=== PATIENT | female | born 1945 | race Caucasian/White ===

== ENCOUNTER 2024-05-06 08:55 | Observation (INO) ==
--- NOTE | 2024-04-17 11:42 | PAT Medication Instructions ---
Medication Instructions Date of Service April 17, 2024 Home Medications Medication Instructions Recorded Wheeled Walker #1 ea 12/13/23 clindamycin HCl 300 mg capsule 600 mg (2 x 300 mg) PO ONCE #2 caps 04/10/24 Medication List: ascorbic acid (vitamin C) 1,000 mg tablet (Vitamin C) 1 g PO QAM calcium-mag oxide-vitamin D3 185 mg-50 mg-100 unit capsule (Coral Calcium) 1 cap PO QAM diphenhydramine HCl 25 mg capsule (Allergy Relief (diphenhydramine)) 25 mg PO UD PRN Allergy Symptoms levothyroxine 100 mcg tablet 100 mcg PO QAM multivitamin-ferrous fumarate-folic acid 18 mg-400 mcg tablet (Centrum Women) 1 tab PO QAM clindamycin HCl 300 mg capsule 600 mg (2 x 300 mg) PO ONCE acetaminophen 500 mg tablet (Tylenol Extra Strength) 1,000 mg PO TID PRN pain MEDICATION INSTRUCTIONS: Continue as directed clindamycin HCl 300 mg capsule 600 mg (2 x 300 mg) PO ONCE DO NOT take the morning of surgery ascorbic acid (vitamin C) 1,000 mg tablet (Vitamin C) 1 g PO QAM calcium-mag oxide-vitamin D3 185 mg-50 mg-100 unit capsule (Coral Calcium) 1 cap PO QAM diphenhydramine HCl 25 mg capsule (Allergy Relief (diphenhydramine)) 25 mg PO UD PRN Allergy Symptoms multivitamin-ferrous fumarate-folic acid 18 mg-400 mcg tablet (Centrum Women) 1 tab PO QAM Take morning of surgery With a small sip of water, OTHERWISE NOTHING TO EAT OR DRINK AFTER MIDNIGHT: levothyroxine 100 mcg tablet 100 mcg PO QAM acetaminophen 500 mg tablet (Tylenol Extra Strength) 1,000 mg PO TID PRN pain Take evening before surgery diphenhydramine HCl 25 mg capsule (Allergy Relief (diphenhydramine)) 25 mg PO UD PRN Allergy Symptoms acetaminophen 500 mg tablet (Tylenol Extra Strength) 1,000 mg PO TID PRN pain Other Notes If you have any questions please call us at [phone] or [phone] or [phone] or [phone]
--- NOTE | 2024-04-23 10:44 | Anesthesiology Consultation ---
Date of Service April 23, 2024 Assessment & Plan (1) Encounter for pre-operative examination: - Outpatient joint assessment: Patient is currently scheduled for inpatient pathway. If re-evaluated and patient/surgeon requests outpatient pathway, patient is not advised candidate for outpatient joint program from anesthesia standpoint. Chart Review Chart Review: Acceptable Risk for Surgery and Patient seen in Pre Admission Testing Teaching & Discussion Pre-Anesthesia Teaching/Discussion Notes: Instructed NPO after midnight before surgery, except medications with 15 cc of water. Medication instructions pr ovided according to the PAT guidelines. History Surgery Operation Date: 05/06/24 09:05 Proposed Procedures p Right Total Knee Arthroplasty - Tera Harper MD Height/Weight Height: 5 ft 5 in Weight: 72.8 kg Allergies Allergy/AdvReac Type Severity Reaction Status Date / Time amoxicillin AdvReac Unknown Gastrointestinal Verified 04/16/24 09:39 Upset acetaminophen [From Percocet] AdvReac sleep Verified 04/16/24 09:39 disturbances oxycodone [From Percocet] AdvReac sleep Verified 04/16/24 09:39 disturbances Medications Home Medications Medication Instructions Recorded Confirmed Last Taken ascorbic acid (vitamin C) 1,000 mg 1 g PO QAM 12/02/23 04/16/24 01/01/24 09:00 tablet (Vitamin C) calcium-mag oxide-vitamin D3 185 1 cap PO QAM 12/02/23 04/16/24 01/01/24 09:00 mg-50 mg-100 unit capsule (Coral Calcium) diphenhydramine HCl 25 mg capsule 25 mg PO UD PRN Allergy Symptoms 12/02/23 04/16/24 01/01/24 23:00 (Allergy Relief (diphenhydramine)) levothyroxine 100 mcg tablet 100 mcg PO QAM 12/02/23 04/16/24 01/02/24 07:30 multivitamin-ferrous 1 tab PO QAM 12/02/23 04/16/24 12/26/23 fumarate-folic acid 18 mg-400 mcg tablet (Centrum Women) Wheeled Walker #1 ea 12/13/23 Unknown clindamycin HCl 300 mg capsule 600 mg (2 x 300 mg) PO ONCE #2 caps 04/10/24 04/16/24 Unknown acetaminophen 500 mg tablet 1,000 mg PO TID PRN pain 04/16/24 04/16/24 Unknown (Tylenol Extra Strength) Past Medical History Medical History Hypothyroidism Patient denies h/o stroke, seizures, heart attack, heart failure, DM, HTN, blood clots/DVTs or blood transfusions. Exercise / Class Metabolic Activity III < 4 Walking/Shop/Light housework (denies chest discomfort or shortness of breath with usual activities, ambulates with cane) Past Surgical History Surgical History History of dilatation and curettage ~1974 History of partial hysterectomy w/bladder sling sx. 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/2023 Hx of cholecystectomy ~1974 Hx of left cataract extraction Hx of lumpectomy rt breast, 1989>benign Hx of right cataract extraction Hx of tonsillectomy Hx of tooth extraction fall 2022 x1 tooth, 12/2023 x1 tooth>both surgically removed Past Anesthesia History No Hx of Anesthesia Complications and No Family Hx of Anesthesia Complications History of PONV No Hx of PONV and No Hx of Motion Sickness Social History Smoking Status: Former smoker Do You Dip or Chew Tobacco: No Smoking End Date: age [age] only Hx Alcohol Use: Yes (none for years) Hx Substance Use: No substance use type: does not use Review of Systems Patient denies chest pain, shortness of breath, dyspnea on exertion, snoring, witnessed apneas, reflux, fever, chills, cough, wheezing, or palpitations. Physical Exam Vital Signs Vitals BP 130/73 P 67 TEMP 97.8 SP02 96% on RA RESP 18 Physical Patient resting comfortably in chair in no acute distress, alert and oriented, responding appropriately throughout visit Full cervical extension range of motion without pain TMD < 3 finger breadths Mallampati Score 3 Dentition: partial, denies chipped or loose teeth, caps/crowns, implants or bridges Lungs: normal respiratory effort. Good air movement, clear throughout to auscultation, no adventitious breath sounds Cardiac: regular rate and rhythm, no murmurs noted Carotid arteries: negative bruit bilat Lab Results Anesthesia Preop Results Results Anesthesia Widget: WBC 4.59 K/ul (4.8-10.8) L 04/23/24 Hgb 14.1 g/dl (12.0-16.0) 04/23/24 Hct 43.9 % (37.0-47.0) 04/23/24 Plt 302 K/uL (130-400) 04/23/24 Na 140 mmol/L (136-145) 04/23/24 K 4.2 mmol/L (3.5-5.1) 04/23/24 Cl 104 mmol/L (98-107) 04/23/24 CO2 31 mmol/L (21-32) 04/23/24 BUN 15 mg/dl (6-23) 04/23/24 Creat 0.74 mg/dl (0.6-1.2) 04/23/24 Glucose Level 88 mg/dl (70-99(Fasting)) 04/23/24 PT 10.8 Seconds (9.0-12.0) 04/23/24 PTT 31 Seconds (21-31) 04/23/24 INR 1.0 (0.9-1.1) 04/23/24 Blood Type A Negative 04/23/24 Antibody Screen NEGATIVE 04/23/24 Testing Electrocardiogram Date: 06/11/23 Sinus rhythm, rate 73 bpm Nonspecific T wave abnormality Chest X-Ray Date: 06/11/23 No acute findings.
[~2024-05-06 08:55] MED LIST: BUPIVACAINE 0.25% PF 30 ML VIAL ONE; BUPIVACAINE 0.5 % 5 MG/1 ML PF 10ML VIAL ONE
--- NOTE | 2024-05-06 09:05 | History & Physical Bridge Note ---
Date of Service May 06, 2024 History & Physical Bridge Note I have examined the patient, reviewed the History & Physical and in the interval since the performance of the History & Physical I have noted the following changes of clinical significance: no changes noted
[2024-05-06] MEDS ORDERED: MIDAZOLAM HCL 1 MG/ML 2ML VIAL ONE (09:40)
[2024-05-06] MEDS ORDERED: fentaNYL citrate PF 100 MCG/2 ML VIAL ONE (09:40)
[2024-05-06] MEDS ORDERED: PROPOFOL IV EMULSION 10 MG/ML 20 ML VIAL IV ONE (09:40)
[2024-05-06] MEDS: ACETAMINOPHEN 500 MG TAB PO SCH ×2 (09:45→17:02)
[2024-05-06] MEDS: LR 60ML/HR IV SCH (09:46)
[2024-05-06] MEDS: METOCLOPRAMIDE HCL 10 MG TABLET PO SCH (09:46)
[2024-05-06] MEDS: CeleBREX 200 MG CAP PO SCH (09:46)
[2024-05-06] MEDS: FAMOTIDINE 20 MG TAB PO SCH (09:46)
[2024-05-06] MEDS: LR 500ML BOLUS, THEN 15ML/HR IV SCH (09:47)
[2024-05-06] MEDS ORDERED: fentaNYL citrate PF 100 MCG/2 ML VIAL IV PRN (10:41)
[2024-05-06] MEDS ORDERED: ONDANSETRON INJ 2 MG/ML 2 ML VIAL IV PRN ×2 (10:41→14:51)
[2024-05-06] MEDS ORDERED: PROMETHAZINE HCL 6.25 MG in SODIUM CHLORIDE 0.9% 50 ML IV PRN (10:41)
[2024-05-06] MEDS ORDERED: ePHEDrine sulfate 50 MG/ML AMP IV PRN (10:41)
[2024-05-06] MEDS ORDERED: ATROPINE SULFATE 0.1 MG/ML 10ML SYR IV PRN (10:41)
[2024-05-06] MEDS: ceFAZolin 2000MG 2,000 MG/15 ML SYR IV SCH (11:30)
[2024-05-06] MEDS ORDERED: PHENYLEPHRINE 100MCG/ML 10ML SYR IV ONE (11:49)
[2024-05-06] MEDS: ORTHO JOINT ANESTHETIC ONE (11:52)
[2024-05-06] MEDS: ROPIV 0.5% 246mg, Ketorolac 30mg, EPINEPHrine 0.5mg in NSS INFIL SCH (11:52)
[2024-05-06] MEDS: TRANEXAMIC ACID 1,000 MG **IV Intra-op IV SCH (12:25)
--- NOTE | 2024-05-06 13:29 | Operative Report ---
PG Post Operative Report Pre & Post Diagnosis Operation Date: 05/06/24 10:40 Pre-Op Diagnosis: Right Knee Degenerative Joint Disease Post-Op Diagnosis: Right Knee Degenerative Joint Disease I identified the patient and participated in the time-out.: Yes Procedure Operation Date: 05/06/24 10:40 Actual Procedures p Right Total Knee Arthroplasty, Cemented(Right) - Tera Harper MD Surgeon Tera Harper MD Finish Opener Bucky Whitney PA-C Estimated Blood Loss 50 Findings Consistent with Post-Op Diagnosis Operative findings were advanced right knee DJD. She has extensive grade 4 [id number] disease in all 3 compartments. She has a severe varus deformity to her knee with destruction of the medial posterior medial tibial plateau and eburnation. Large osteophytes. Very unstable need to a varus valgus stressing preoperatively. She had large cyst in the medial femoral condyle as well as the medial aspect of the tibia and tibial plateau. Specimens Right knee sent for pathology. Anesthesia Type Spinal MAC Complications none Disposition Accompanied Patient To Recovery: No Indications The patient is an 78-year-old female is had a long history of progressive bilateral knee pain discomfort and disability. She been through extensive conservative treatment which did not work any longer. She is markedly debilitated by her knee problems and she had use cane to get around. She had her left knee replaced about 4 months ago and is done quite well. She continues to be limited by right knee pain discomfort and instability. She elected to see with right total knee arthroplasty. The patient had a severely unstable knee and therefore we use a cemented tibial stem with a PS plus insert. Description of Procedure Operative implants consist of: 1. Biomet Vanguard size 67.5 right posterior stabilized femoral component. 2. Biomet size 67 tibial tray with an 80 x 10 mm cemented stem. 3. 10 mm PS plus insert. 4. 28 x 8 all poly patella. The patient was taken the operating, identified, placed on the operating table in the supine position. All contact areas were appropriately padded. IV antibiotics tried by anesthesia team. A spinal anesthetic been implemented holding area. A Jacome catheter was placed in sterile fashion. Right Tetrick was then placed in the right lower extremity was then prepped and draped in usual sterile fashion. The right leg was elevated exsanguinated with use of an Esmarch and the tourniquet was placed at 300 mmHg. An anterior approach of the right knee was then performed through a longitudinal incision centered over the patella. Sharp dissection was Through subcutaneous tissue down the extensor mechanism. A medial parapatellar arthrotomy incision was made. Some subperiosteal dissection was carried out medially. The fat pad was resected from each patella tendon. The lateral patellofemoral ligament was released. Patella subluxated laterally knee was flexed. The osteophytes taken off distal femur. The ACL and PCL were then released and the distal femur the tibia subluxated anteriorly. The external tibial alignment jig was then placed on the anterior face the tibia and adjusted 14 mm medially. Proximal tibial cut was made to be essentially flush with the most deficient aspect medial tibial plateau. There was a fairly significant cyst in the medial tibial plateau. The tibia sized to a size 67. Some osteophytes taken off medial and posterior medially. Attention drawn the femur. The distal femur examined the sharp drop with intramedullary canal was suction. A right 5 degree valgus cutting guide was placed but the distal femoral cutting block was pinned in place. Distal femoral cut was made to take an additional 3 mm of bone off distal femur. The femur was then sized to a size 67.5. The AP cutting block was pinned parallel to the epicondylar axis which was 4 degrees of external rotation. The anterior cut, anterior chamfer, posterior cut, posterior chamfer cuts were made. The box cutting guide was placed and just slight lateral and the box cut was made. The knee was flexed. The remnants of the medial and lateral menisci were excised. The osteophytes were taken off the posterior aspect the femur. I did curette the large cyst out of the medial femoral condyle. It was a contained defect and we elected just fill this with cement. The trial femoral component was placed. The tibial tray was then pinned in Chitra external rotation. The drill and stem punch were used to create defect for the proximal tibia for the tibial tray. I then reamed with a bench hand machine up to a size 13. We then placed the tray with a 10 mm x 80 mm stem. It did send do have a defect medially and we elected to adjust fill that was cement. We trialed the knee and the 10 insert fit appropriately. I like to use a PS insert in order to maximize her stability. Attention drawn the patella. Patella was cleaned of all soft tissue. Patella thickness measured 22 mm in thickness was cut down to 13. Was sized to a size 28 patella. The lug holes were drilled for the 28 patella. The lateral osteophyte was removed. Patella button was placed. Knee was taken through range of motion patella tracked nicely with no thumbs test. I did examine the tibia again and I felt like my cut may have just been a little bit varus and that may be why she had a little bit of a medial defect. We elected to place these implants. All trial implants were removed. A double batch of Palacos G cement was mixed. A Biomet Vanguard size 67.5 right posterior Byce femoral component, size 67 tib ial tray with a 10 mm x 80 mm stem extension 1, a 10 mm PS plus insert, and a 28 x 8 all poly patella then cemented in place. We did take great care to make sure this the medial aspect the tibial plate was supported with cement. The knee was brought out in full extension till cement hardened. Final cement check was then performed. The pericapsular tissues were injected with total of 100 cc of Ortho mix. Patient did receive 1 g tranexamic acid. The tourniquet was then let down for a final tourniquet time of 64 minutes. Hemostasis assured use electrocautery. The wounds once again irrigated. Extensor Metros then closed with combination of 1 PDS suture #1 Vicryl suture in a [id number] fashion. Extensor Meclomen checked found be intact through subcutaneous tissue then closed with 2 Dexon suture buried interrupted fashion skin was closed skin vanessa. Leg was then cleaned and dried a sterile dressing with Xeroform, 4 fours, sterile cast padding, Remy bandage were applied. Patient then transferred to the recovery room in stable condition. Patient tolerated procedure well and there are no complications. Bucky Whitney, my physician assistant activities director, was present for the entire procedure. His assistance was essential and required for appropriate patient positioning, prepping and draping, surgical exposure, performing the technical details of the operation, placement the implants, closure of the wound, and placement of the sterile bandage. I attest to the content of the Intraoperative Record and any orders documented therein. Any exceptions are noted below.
--- NOTE | 2024-05-06 14:12 | XRay Report ---
TWO VIEWS RIGHT KNEE CLINICAL HISTORY: Postoperative examination. FINDINGS: AP and crosstable lateral portable views of the right knee are obtained. A right knee arthr oplasty is in near anatomic alignment. There has been undersurface remodeling of the patella. No acut e fracture is seen. There are expected postoperative changes around the knee including skin clips, so ft tissue edema, and subcutaneous gas. IMPRESSION: Expected postoperative changes status post right knee arthroplasty. No acute fracture is seen. ACT 112: Negative or not required by law. Electronically signed by: Faizan Greenwood M.D. 05/06/2024 2:11 PM
[2024-05-06] MEDS ORDERED: NALOXONE HCL 0.4 MG/1 ML VIAL/CARP IV PRN (14:51)
[2024-05-06] MEDS ORDERED: NON-FORMULARY MEDICATION (Amino Acids [Amino Acid] Capsule) PO SCH (14:51)
[2024-05-06] MEDS ORDERED: HYDROmorphone INJ 0.5 MG/0.5 ML SYR IV PRN (14:51)
[2024-05-06] MEDS ORDERED: ALUMINUM/MAGNESIUM SUSP 30 ML UDC PO PRN (14:51)
[2024-05-06] MEDS ORDERED: MAGNESIUM HYDROXIDE SUSP 30 ML UDC PO PRN (14:51)
[2024-05-06] MEDS ORDERED: METOCLOPRAMIDE HCL INJ 5 MG/ML 2 ML VIAL IV PRN (14:51)
[2024-05-06] MEDS ORDERED: bisacodyL 10 MG SUPP PR PRN (14:51)
[2024-05-06] MEDS ORDERED: diphenhydrAMINE Capsule 25 MG CAP PO PRN (14:51)
[2024-05-06] MEDS: SODIUM CHLORIDE 0.9% 1,000 ML IV SCH (15:01)
[2024-05-06] MEDS: KETOROLAC TROMETHAMINE 15 MG/ML VIAL IV SCH (15:18)
--- NOTE | 2024-05-06 15:42 | Anesthesiology Progress Note ---
Date of Service May 06, 2024 Anesthesia Post Procedure Vital Signs Vital Signs: Temp Pulse Pulse Resp BP Pulse Ox O2 Del Method 05/06/24 15:19 36.1 C L 68 17 124/69 95 Room Air 05/06/24 14:51 36.5 C 73 17 130/72 97 Nasal Cannula 05/06/24 14:25 36.3 C L 77 17 119/67 93 Nasal Cannula 05/06/24 14:15 82 17 126/67 94 Nasal Cannula 05/06/24 14:05 80 16 124/72 94 Nasal Cannula 05/06/24 13:55 83 18 127/62 94 Nasal Cannula 05/06/24 13:45 78 15 121/65 93 Nasal Cannula 05/06/24 13:35 78 16 135/74 96 Oxymask 05/06/24 13:25 80 18 130/63 96 Oxymask 05/06/24 13:15 36 C L 81 17 112/62 98 Oxymask 05/06/24 09:30 36.6 C 73 20 129/65 95 Room Air O2 Flow Rate 05/06/24 15:19 05/06/24 14:51 2 05/06/24 14:25 2 05/06/24 14:15 2 05/06/24 14:05 2 05/06/24 13:55 2 05/06/24 13:45 2 05/06/24 13:35 2 05/06/24 13:25 2 05/06/24 13:15 7 05/06/24 09:30 Pain Intensity Left Ribs: Pain Intensity: 4 Transfer of Care Handoff Completed per policy Notes Mental Status: alert / awake / arousable and participated in evaluation Patient Amnestic to Procedure: Yes Nausea / Vomiting: adequately controlled Pain: adequately controlled Airway Patency, RR, SpO2: stable & adequate BP & HR: stable & adequate Hydration State: stable & adequate Neuraxial Anesthesia: was administered and sensory block is resolving Anesthetic Complications: no major complications apparent and Pt Satisfied with anesthetic care
[2024-05-06] MEDS: ASCORBIC ACID 500 MG TAB PO SCH (17:01)
[2024-05-06] MEDS: TRANEXAMIC ACID / 0.7% NACL 1,000 MG/100 ML BAG IV SCH (19:41)
[2024-05-06] MEDS: ceFAZolin 1000MG 1,000 MG/7.5 ML SYR IV SCH (20:08)
[2024-05-06] MEDS: SENNA 8.6 MG TAB PO SCH (20:08)
[2024-05-06] MEDS: DOCUSATE SODIUM 100 MG CAP PO SCH (20:08)
[2024-05-06] MEDS: ASPIRIN 81 MG ECTAB PO SCH (20:08)
[2024-05-06] MEDS ORDERED: NON-FORMULARY MEDICATION (Vit C,E-Zn-Coppr-Lutein-Zeaxan [Preservision Areds-2] 250-90-40- PO SCH (21:00)
[2024-05-06] MEDS ORDERED: SENNA 8.6 MG TAB PO SCH (21:00)
[2024-05-06 22:10] VITALS: RESP 16
[2024-05-06] MEDS: traMADol HCL 50 MG TABLET PO PRN (23:20)
[2024-05-07 03:23] VITALS: O2SAT 92
[2024-05-07] MEDS: LEVOTHYROXINE SODIUM 100 MCG TABLET PO SCH (05:40)
[2024-05-07 07:35] VITALS: BP 113/67; PULSE 74; TEMP 98.2
[2024-05-07] MEDS: MULTIVITAMIN TAB PO SCH (08:15)
[2024-05-07] MEDS: dexAMETHasone 10 MG in SYRINGE 0 ML IV SCH (08:18)
[2024-05-07] MEDS ORDERED: [UNRECOGNIZED DRUG - OTHER] PO SCH (09:00)
[2024-05-07] MEDS ORDERED: NON-FORMULARY MEDICATION (Multivitamin-Iron-Folic Acid [Centrum Women] 18-400 mg-mcg Table PO SCH (09:00)
[2024-05-07] MEDS ORDERED: NON-FORMULARY MEDICATION (Ascorbic Acid (Vitamin C) [Vitamin C] 1,000 mg Tablet) PO SCH (09:00)
[2024-05-07 11:01] LABS: Hematocrit (blood only) 35.4 % (37.0-47.0); Hemoglobin 11.4 g/dl (12.0-16.0); Mean Corpuscular Hemoglobin 29.3 pg (25.0-34.0); Mean Corpuscular Hgb Conc 32.2 g/dL (32.0-36.0); Mean Platelet Volume 8.9 fL (9.4-12.4); Platelet Count 233 K/uL (130-400); RDW Standard Deviation 47.3 fL (36.4-46.3); Red Blood Count 3.89 M/uL (4.20-5.40); White Blood Count 5.85 K/ul (4.8-10.8)
[2024-05-07 11:20] LABS: BUN Creatinine Ratio 21.5 (10-20); Calcium 8.8 mg/dl (8.6-10.3); Creatinine Clr Calc Pharmacy 56.9 ml/min; Est GFR (African American) 81.9 ml/min; Est GFR (Non-African American) 70.7 ml/min; Potassium 3.9 mmol/L (3.5-5.1)
--- NOTE | 2024-05-07 12:36 | Orthopedic Progress Note ---
Date of Service May 07, 2024 Assessment & Plan (1) Status post right knee replacement: Plan: 78-year-old female postop day 1 from a right knee replacement doing quite well. Pain is controlled. She is neurologically intact. Plan: 1. DVT prophylaxis including Thiede teds, SCDs, aspirin twice a day. 2. PT/OT. She can weight-bear as tolerated. Right total knee protocol. 3. Pain control doing okay with current pain regimen. 4. Disposition. Plan is to discharge her to go home today with home health. (2) Status post left knee replacement: Admission and Anticipated Discharge Date Admission Date: May 06, 2024 Subjective 78-year-old female postop day 1 from right knee replacement. She is doing pretty well. Pains controlled. Had a reasonable night. No chest pain or shortness of breath. Not feeling dizzy or lightheaded. She is hoping to go home today. Physical Exam Physical Exam: Physical exam shows a pleasant elderly female. That she was in the bathroom when I visited her today. Examination of the right leg reveals the dressing be clean dry and intact. She can dorsiflex and plantarflex her foot appropriately. She cannot quite do a straight leg raise. Respiratory: normal respiratory effort, lungs clear to auscultation Cardiovascular: RRR, no murmur, no edema Gastrointestinal (Abdomen): normal bowel sounds, soft, nontender, no hepatosplenomegaly Results & Data Vital Signs (Past 12 Hours) Vital Signs Temp Pulse Resp BP Pulse Ox O2 Del Method 05/07/24 07:34 36.8 C 74 16 113/67 92 Room Air 05/07/24 03:21 36.9 C 88 16 125/70 92 Room Air Laboratory Results Hemoglobin is 11.4. Hematocrit is 35.4. Electrolytes are stable
--- NOTE | 2024-05-14 08:02 | Discharge Summary ---
Date of Service May 14, 2024 Discharge Data Procedures Performed Operation Date: 05/06/24 10:40 Actual Procedures p Right Total Knee Arthroplasty, Cemented(Right) - Tera Harper MD Hospital Course (1) Status post right knee replacement: This is a 78 year old patient admitted on 05/06/24 and underwent total knee arthroplasty. She tolerated the procedure well and there were no complications. Transferred to the PACU post op and later to the orthopedic floor for further care. She was given ancef for antibiotic prophylaxis. She was also given DUSTY stockings, SCDs, and aspirin for DVT prophylaxis. Hemoglobin, hematocrit, and vital signs were monitored during her hospital stay and remained stable. Did not require any blood transfusions. There were no complications during her hospital stay. By post op day #1 the patient was tolerating a regular diet, pain was reasonably controlled with oral pain medicine, and she was participating in physical therapy. On post op day #1 the patient was discharged home and set up with home health care. She was given printed discharge instructions including prescriptions for extra strength tylenol, aspirin, cefadroxil, ketorolac, zofran, senokot, and tramadol. Continue physical therapy, weight bearing as tolerated. Continue DUSTY stockings. Follow up approximately 2 weeks post op or sooner if there are problems or concerns. Coding Level of Care Code None Diagnoses Status post right knee replacement Z96.651
== END 2024-05-07 12:54 | disposition home health service (06) ==
LOC: ASU 08:55 → 3E 08:55